=== PATIENT | male | born 1950 | race Caucasian/White ===

== ENCOUNTER 2016-06-29 10:02 | Emergency (ER) | payer MEDICARE ==
[2016-06-29] MEDS ORDERED: SODIUM CHLORIDE 0.9% 1,000 ML IV STA (10:13)
--- NOTE | 2016-06-29 10:16 | ED ---
Dizziness HPI - General Stated Complaint: Near Syncope Time Seen by Provider: 06/29/16 10:02 Source: patient, EMS, RN notes reviewed Mode of arrival: EMS - History of Present Illness Initial Comments: This is a 66-year-old male who was just diagnosed with an upper respiratory infection yesterday and started on cefuroxime who states that after eating breakfast today took one of his medications a felt very lightheaded and dizzy about 20 minutes later. He denies any chest pain shortness breath no fevers chills or sweats. He was brought in by EMS for evaluation. He had a blood pressure 1:30/84 and a glucose 194. He has a history of hypertension and high cholesterol type 2 diabetes. MD Complaint: dizziness, lightheadedness - Related Data Home Medications Medication Instructions Recorded Confirmed Ezetimibe [Zetia] 10 mg PO DAILY 11/09/13 06/29/16 Simvastatin [Zocor] 20 mg PO HS 11/09/13 06/29/16 Bisoprolol Fumarate 10 mg PO DAILY 06/29/16 06/29/16 Cefuroxime Axetil [Ceftin] 500 mg PO BID 06/29/16 06/29/16 Ibuprofen [Motrin] 600 mg PO Q6HR PRN 06/29/16 06/29/16 sitaGLIPtin PHOS/metFORMIN HCL 1 tab PO BID 06/29/16 06/29/16 [Janumet 50-500 mg Tablet] Previous Rx's Medication Instructions Recorded Levofloxacin [Levaquin] 500 mg PO DAILY #10 tab 06/29/16 Allergies Allergy/AdvReac Type Severity Reaction Status Date / Time azithromycin Allergy Unknown Verified 06/29/16 10:38 [From Zithromax Z-Benito] Review of Systems ROS Statement: Those systems with pertinent positive or pertinent negative responses have been documented in the HPI. ROS Other: All systems not noted in ROS Statement are negative. Past Medical History Past Medical History: Hyperlipidemia, Hypertension, Pneumonia History of Any Multi-Drug Resistant Organisms: None Reported Past Surgical History: No Surgical Hx Reported Past Psychological History: No Psychological Hx Reported Smoking Status: Never smoker Past Alcohol Use History: None Reported Past Drug Use History: None Reported General Exam General appearance: alert, in no apparent distress Head exam: Present: atraumatic, normocephalic, normal inspection Eye exam: Present: normal appearance, PERRL, EOMI. Absent: scleral icterus, conjunctival injection, periorbital swelling ENT exam: Present: mucous membranes dry Neck exam: Present: normal inspection. Absent: tenderness, meningismus, lymphadenopathy Respiratory exam: Present: normal lung sounds bilaterally. Absent: respiratory distress, wheezes, rales, rhonchi, stridor Cardiovascular Exam: Present: regular rate, normal rhythm, normal heart sounds. Absent: systolic murmur, diastolic murmur, rubs, gallop, clicks GI/Abdominal exam: Present: soft, normal bowel sounds. Absent: distended, tenderness, guarding, rebound, rigid Extremities exam: Present: normal inspection, full ROM, normal capillary refill. Absent: tenderness, pedal edema, joint swelling, calf tenderness Back exam: Present: normal inspection Neurological exam: Present: alert, oriented X3, CN II-XII intact Psychiatric exam: Present: normal affect, normal mood Skin exam: Present: warm, dry, intact, normal color. Absent: rash Course Vital Signs 06/29/16 06/29/16 06/29/16 10:18 12:06 12:07 Temperature 98.1 F Pulse Rate 73 Pulse Rate [ 74 72 Integrated Logistics Support Manager ] Respiratory 16 Rate Blood Pressure 154/78 Blood Pressure 153/67 164/77 [Right Arm] O2 Sat by Pulse 98 Oximetry 06/29/16 12:19 Temperature Pulse Rate 77 Pulse Rate [ Integrated Logistics Support Manager ] Respiratory 20 Rate Blood Pressure 164/77 Blood Pressure [Right Arm] O2 Sat by Pulse 96 Oximetry EKG Findings - EKG Results: EKG: interpreted by ERMLane, WNL, sinus rhythm, normal axis, normal QRS, normal ST/ T, no acute changes (Sinus rhythm with a rate 75 appear of 01 92 QRS duration 86 QT/QTC of 374/417 this is a normal-appearing EKG some artifact is noted especially V1) Medical Decision Making - Medical Decision Making I did discuss the findings with the patient and with Dr. Perkins. Patient will be discharged she will be switched from his current antibiotic to Levaquin. He is a follow-up with his doctor and return when necessary he currently is asymptomatic. - Lab Data Result diagrams: 06/29/16 10:46 06/29/16 10:46 Lab Results 06/29/16 06/29/16 06/29/16 Range/Units 10:46 10:46 10:46 WBC 6.6 (3.8-10.6) k/uL RBC 5.13 (4.30-5.90) m/uL Hgb 15.4 (13.0-17.5) gm/dL Hct 45.4 (39.0-53.0) % MCV 88.5 (80.0-100.0) fL MCH 30.0 (25.0-35.0) pg MCHC 33.9 (31.0-37.0) g/dL RDW 12.0 (11.5-15.5) % Plt Count 192 (150-450) k/uL Neutrophils % 66 % Lymphocytes % 24 % Monocytes % 5 % Eosinophils % 3 % Basophils % 1 % Neutrophils # 4.3 (1.3-7.7) k/uL Lymphocytes # 1.6 (1.0-4.8) k/uL Monocytes # 0.4 (0-1.0) k/uL Eosinophils # 0.2 (0-0.7) k/uL Basophils # 0.0 (0-0.2) k/uL Sodium 138 (137-145) mmol/L Potassium 4.3 (3.5-5.1) mmol/L Chloride 105 (98-107) mmol/L Carbon Dioxide 25 (22-30) mmol/L Anion Gap 8 mmol/L BUN 16 (9-20) mg/dL Creatinine 0.88 (0.66-1.25) mg/dL Est GFR (MDRD) Af Amer >60 (>60 ml/min/1.73 sqM) Est GFR (MDRD) Non-Af >60 (>60 ml/min/1.73 sqM) Glucose 147 H (74-99) mg/dL Calcium 8.8 (8.4-10.2) mg/dL Magnesium 1.8 (1.6-2.3) mg/dL Total Bilirubin 0.5 (0.2-1.3) mg/dL AST 18 (17-59) U/L ALT 52 (21-72) U/L Alkaline Phosphatase 74 (38-126) U/L Total Creatine Kinase 41 L (55-170) U/L CK-MB (CK-2) 0.5 (0.0-2.4) ng/mL CK-MB (CK-2) Rel Index 1.2 Troponin I <0.012 (0.000-0.034) ng/mL Total Protein 6.4 (6.3-8.2) g/dL Albumin 3.6 (3.5-5.0) g/dL - Radiology Data Radiology results: report reviewed (I did review the imaging and report no acute findings.), image reviewed Disposition Clinical Impression: Benign paroxysmal positional vertigo, Medication reaction Disposition: HOME SELF-CARE Condition: Good Instructions: Dizziness (ED) Additional Instructions: Stop her current antibiotic and start Levaquin as directed Prescriptions: Levofloxacin [Levaquin] 500 mg PO DAILY #10 tab
[2016-06-29 10:58] LABS: Basophils % (A) 1 %; CH 30.7; CHCM 34.7; Eosinophils # (A) 0.2 k/uL (0-0.7); Eosinophils % (A) 3 %; HCT 45.4 % (39.0-53.0); HGB 15.4 gm/dL (13.0-17.5); Luc # (Auto) 0.12; Luc % (Auto) 2; Lymphocytes # (A) 1.6 k/uL (1.0-4.8); Lymphocytes % (A) 24 %; MCHC 33.9 g/dL (31.0-37.0); MCV 88.5 fL (80.0-100.0); Mean Platelet Volume 8.3; Monocytes # (A) 0.4 k/uL (0-1.0); Monocytes % (A) 5 %; Neutrophils # (A) 4.3 k/uL (1.3-7.7); Neutrophils % (A) 66 %; RBC 5.13 m/uL (4.30-5.90); WBC 6.6 k/uL (3.8-10.6); WBC (Perox) 6.45
[2016-06-29 11:09] LABS: ALT 52 U/L (21-72); AST 18 U/L (17-59); Alkaline Phosphatase 74 U/L (38-126); Anion Gap 8 mmol/L; Blood Urea Nitrogen 16 mg/dL (9-20); Calcium 8.8 mg/dL (8.4-10.2); Carbon Dioxide 25 mmol/L (22-30); Chloride 105 mmol/L (98-107); Glucose 147 mg/dL (74-99); Magnesium 1.8 mg/dL (1.6-2.3); Non-African American GFR(MDRD) >60 (>60 ml/min/1.73 sqM); Potassium 4.3 mmol/L (3.5-5.1); Sodium 138 mmol/L (137-145); Total Bilirubin 0.5 mg/dL (0.2-1.3); Total Protein 6.4 g/dL (6.3-8.2)
--- NOTE | 2016-06-29 11:22 | XR ---
EXAMINATION TYPE: XR chest 2V DATE OF EXAM: 06/29/2016 11:03 AM COMPARISON: 11/09/2013 HISTORY: 66-year-old male trauma, dizziness, head cold TECHNIQUE: PA and lateral views FINDINGS: The cardiomediastinal silhouette, aorta, and pulmonary vasculature are within normal limits. Lungs an d pleural spaces are clear. IMPRESSION: No acute cardiopulmonary process.
[2016-06-29 11:27] LABS: Creatine Kinase 41 U/L (55-170)
[2016-06-29 11:40] LABS: Creatine Kinase MB 0.5 ng/mL (0.0-2.4); Troponin I <0.012 ng/mL (0.000-0.034)
[2016-06-29 13:55] VITALS: BP 151/90; PULSE 71; RESP 16; TEMP 98.3
== END 2016-06-29 14:05 | disposition home or self-care (01) ==
LOC: EC 10:02
DX: H81.10 Benign paroxysmal vertigo, unspecified ear (principal); T50.905A Adverse effect of unspecified drugs, medicaments and biological substances, initial encounter; I10 Essential (primary) hypertension; E78.00 Pure hypercholesterolemia, unspecified; E11.9 Type 2 diabetes mellitus without complications; Z79.899 Other long term (current) drug therapy; Z79.84 Long term (current) use of oral hypoglycemic drugs; Z88.1 Allergy status to other antibiotic agents; Z87.01 Personal history of pneumonia (recurrent)
CPT/HCPCS: 36415; 71020; 80053; 82550; 82553; 83735; 84484; 85025; 93005; 96360; 96361; 96374; 99284; 99285

== ENCOUNTER → 2017-04-19 | Outpatient (CLI) | payer MEDICARE ==
--- NOTE | 2017-04-19 17:00 | US ---
EXAMINATION TYPE: US carotid duplex BILAT DATE OF EXAM: 04/19/2017 COMPARISON: NONE CLINICAL HISTORY: R42 Vertigo. Dizziness EXAM MEASUREMENTS: RIGHT: Peak Systolic Velocity (PSV) cm/sec ----- Right CCA: 83.2 ----- Right ICA: 199.2 ----- Right ECA: 154.3 ICA/CCA ratio: 2.4 RIGHT: End Diastole cm/sec ----- Right CCA: 26.0 ----- Right ICA: 72.0 ----- Right ECA: 18.4 LEFT: Peak Systolic Velocity (PSV) cm/sec ----- Left CCA: 123.4 ----- Left ICA: 123.4 ----- Left ECA: 138.6 ICA/CCA ratio: 1.0 LEFT: End Diastole cm/sec ----- Left CCA: 32.3 ----- Left ICA: 37.0 ----- Left ECA: 15.7 VERTEBRALS (direction of flow): Right Vertebral: Antegrade Left Vertebral: Antegrade Rhythm: Normal Bilateral intimal thickening, plaque: bilateral bulb and proximal ICA, elevated velocities: right pro ximal ICA, right mid ECA and left mid ECA. Atheromatous changes noted in the carotid bulb on the right and left with shadowing compatible with c alcification. IMPRESSION: Hemodynamic significant stenosis of the proximal internal carotid artery on the right co rresponds to approximately 50% diameter reduction by Doppler criteria, an indirect measurement of car otid stenosis Criteria for Assigning % of Stenosis / Diameter reduction (Estimation based on the indirect measurements of the internal carotid artery velocities (ICA PSV). 1. Normal (no stenosis)=ICA PSV < 125 cm/s: ratio < 2.0: ICA EDV<40 cm/s. 2. Less than 50% stenosis=ICA PSV < 125 cm/s: ratio < 2.0: ICA EDV<40 cm/s. 3. 50 to 69% stenosis=ICA PSV of 125 to 230 cm/s: ration 2.0 ? 4.0: ICA EDV 40-100 cm/s. 4. Greater than 70% stenosis to near occlusion= ICA PSV > 230 cm/s: ratio > 4.0: ICA EDV > 100 cm/s. 5. Near occlusion= ICA PSV velocities may be low or undetectable: variable ratio and ICA EDV. 6. Total occlusion=unable to detect flow.
--- NOTE | 2017-04-20 11:06 | ECHOF ---
Referral Reason:R42 VERTIGO MEASUREMENTS -------- HEIGHT: 175.3 cm WEIGHT: 83.9 kg BP: 148/65 IVSd: 1.2 cm (0.6 - 1.1) LVIDd: 4.2 cm (3.9 - 5.3) LVPWd: 1.2 cm (0.6 - 1.1) IVSs: 1.6 cm LVIDs: 2.8 cm LVPWs: 1.5 cm Ao Diam: 3.3 cm (2.0 - 3.7) AV Cusp: 1.2 cm (1.5 - 2.6) LA Diam: 3.1 cm (2.7 - 3.8) MV EXCURSION: 22.451 mm (> 18.000) MV EF SLOPE: 64 mm/s (70 - 150) EPSS: 0.2 cm MV E Krish: 0.82 m/s MV DecT: 189 ms MV A Krish: 1.07 m/s MV E/A Ratio: 0.76 AR PHT: 353 ms RAP: 5.00 mmHg RVSP: 14.34 mmHg FINDINGS -------- Sinus rhythm. This was a technically good study. The left ventricular size is normal. There is mild concentric left ventricular hypertrophy. Overa ll left ventricular systolic function is normal with, an EF between 55 - 60 %. The right ventricle is normal in size and function. The left atrium is normal in size. The right atrium is normal in size. Aortic valve is trileaflet and is mildly thickened. Trace amount of aortic regurgitation. The mitral valve leaflets are mildly thickened. There is trace mitral regurgitation. Trace tricuspid regurgitation present. The right ventricular systolic pressure, as measured by Dopp ler, is 14.34mmHg. Pulmonic valve appears structurally normal. The aortic root size is normal. The pericardium is normal. CONCLUSIONS -------- 1. Sinus rhythm. 2. This was a technically good study. 3. The left ventricular size is normal. 4. There is mild concentric left ventricular hypertrophy. 5. Overall left ventricular systolic function is normal with, an EF between 55 - 60 %. 6. The right ventricle is normal in size and function. 7. The left atrium is normal in size. 8. The right atrium is normal in size. 9. Aortic valve is trileaflet and is mildly thickened. 10. Trace amount of aortic regurgitation. 11. The mitral valve leaflets are mildly thickened. 12. There is trace mitral regurgitation. 13. Trace tricuspid regurgitation present. 14. The right ventricular systolic pressure, as measured by Doppler, is 14.34mmHg. 15. Pulmonic valve appears structurally normal. 16. The aortic root size is normal. 17. The pericardium is normal. MEAT SMOKER: Shi Mendiola RDCS
== END | disposition home or self-care (01) ==
LOC: RADECHMAIN 14:51
PROVIDERS: ATTEND Family Medicine
DX: I65.23 Occlusion and stenosis of bilateral carotid arteries (principal); I08.3 Combined rheumatic disorders of mitral, aortic and tricuspid valves
CPT/HCPCS: 93306; 93880

== ENCOUNTER → 2019-11-23 | Outpatient (CLI) | payer MEDICARE ==
[2019-11-23 11:36] LABS: African American GFR (CKD) >90 (>60 ml/min/1.73 sqM); Anion Gap 6 mmol/L; Blood Urea Nitrogen 18 mg/dL (9-20); Carbon Dioxide 29 mmol/L (22-30); Chloride 105 mmol/L (98-107); Non-African American GFR(CKD) >90 (>60 ml/min/1.73 sqM); Potassium 4.6 mmol/L (3.5-5.1); Sodium 140 mmol/L (137-145)
[2019-11-23 12:01] LABS: HCT 44.7 % (39.0-53.0); HGB 14.5 gm/dL (13.0-17.5); MCH 29.7 pg (25.0-35.0); MCHC 32.4 g/dL (31.0-37.0); MCV 91.7 fL (80.0-100.0); Mean Platelet Volume 7.9; Platelet Count 206 k/uL (150-450); RBC 4.88 m/uL (4.30-5.90); RDW 12.2 % (11.5-15.5); WBC 5.5 k/uL (3.8-10.6)
== END | disposition home or self-care (01) ==
LOC: LABPAT 10:21
PROVIDERS: ATTEND Internal Medicine Interventional Cardiology
DX: Z01.818 Encounter for other preprocedural examination (principal); I34.0 Nonrheumatic mitral (valve) insufficiency
CPT/HCPCS: 36415; 80051; 82565; 84520; 85027

== ENCOUNTER 2019-11-29 06:19 | Day surgery (SDC) | payer MEDICARE ==
[2019-11-27 13:38] VITALS: BMI 27.3
[~2019-11-29 06:19] MED LIST: ALPRAZolam 0.25 MG TAB PO PRN; ALPRAZolam 0.5 MG TAB PO PRN; NITROGLYCERIN SL TABS 0.4 MG TAB SUBLINGUAL PRN; SODIUM CHLORIDE 0.9% 1,000 ML in EMPTY BAG 1 BAG IV ONE
[2019-11-29] MEDS ORDERED: ATORVASTATIN 80 MG TAB PO ONE (07:00)
[2019-11-29] MEDS ORDERED: ASPIRIN 325 MG TAB PO ONE (07:00)
[2019-11-29 07:15] LABS: Glucose,Whole Blood 140 mg/dL (75-99)
[2019-11-29 07:17] VITALS: TEMP 98
[2019-11-29] MEDS ORDERED: SODIUM CHLORIDE 0.9% 1,000 ML IV ONE (07:18)
[2019-11-29] MEDS ORDERED: fentaNYL (PF) 50 MCG/ML 2 ML AMP ONE (07:18)
[2019-11-29] MEDS ORDERED: IV FLUID CONTINUATION 950 ML IV ONE (07:24)
[2019-11-29] MEDS ORDERED: BENZOCAINE SPRAY 1 CAN TOPICAL ONE ×2 (07:32→07:39)
[2019-11-29] MEDS ORDERED: MIDAZOLAM 2 MG/2 ML VIAL IV ONE (07:39)
[2019-11-29] MEDS ORDERED: fentaNYL (PF) 50 MCG/ML 2 ML AMP IV ONE ×2 (07:41→08:30)
[2019-11-29] MEDS: MIDAZOLAM 2 MG/2 ML VIAL IV ONE ×2 (07:44→07:50)
[2019-11-29] MEDS ORDERED: LIDOCAINE 1% INJ 10MG/ML (20 ML MDV) SQ ONE (08:25)
[2019-11-29] MEDS ORDERED: IOPAMIDOL-370 100ML BTL INJ ONE ×2 (08:49)
[2019-11-29] MEDS ORDERED: RX INFO: IV CONTRAST WAS GIVEN 1 EACH MISC MISCELLANE PRN (08:55)
[2019-11-29] MEDS ORDERED: SODIUM CHLORIDE 0.9% 1,000 ML IV SCH (09:00)
--- NOTE | 2019-11-29 09:01 | P.PCN ---
Date of Procedure: 11/29/19 Operative Findings: TRANSESOPHAGEAL ECHOCARDIOGRAM GERIATRIC NURSING ASSISTANT: JAMAL ABARCA MD, RPVI INDICATION: This is a 69-year-old gentleman with diabetes, hypertension, and dyslipidemia who was experiencing increasing shortness of breath with exertion. The echocardiogram revealed evidence of mitral regurgitation. The mitral regurgitation was moderate. For further clarification and for definitive diagnosis, the patient was scheduled to undergo a YVROSE and heart catheterization SEDATION: Conscious sedation COMPLICATION: None PROCEDURE DESCRIPTION: After obtaining an informed consent, the patient was brought to transesophageal echocardiogram room. Pulse oximetry and heart monitors were attached to the patient. The patient throat was sprayed using lidocaine. The patient was turned into left lateral position. After that a bite guard was placed. After an appropriate conscious sedation was initiated, the transesophageal echocardiogram was advanced through a bite guard into the mid esophagus. A 2-D echocardiogram images, color Doppler images, continuous wave images, pulse-wave images, of various cardiac structure were performed. After that the transesophageal echocardiogram probe was advanced into the stomach and fixed to obtain transgastric view was. The probe was brought into the mid esophagus. Inter-atrial septum was interrogated using 2D images, color Doppler images, and then contrast study. After that transesophageal echocardiogram was withdrawn out and upon withdrawing the descending thoracic aorta all the way up to the arch was evaluated. FINDING: The left ventricular dimension and systolic function appeared to be within normal limits. The ejection fraction appeared to be in the range of 60%. The right ventricle appeared to be of normal size and function. The left atrium and right atrium are mildly dilated. The interatrial septum appeared to be intact. The left atrial appendage appeared to be intact. Aortic valve is trileaflet valve without stenosis with mild insufficiency. The mitral valve is mildly thickened with evidence of moderate mitral regurgitation only. There was moderate tricuspid regurgitation seen and mild pulmonic insufficiency. There was mild atherosclerotic plaque was seen in the aorta. CONCLUSION: 1. Normal left ventricular dimension and systolic function 2. Normal right ventricular dimension and systolic function 3. Mild biatrial enlargement 4. Intact interatrial septum without shunt 5. Normal left atrial appendage 6. Trileaflet aortic valve without stenosis with mild insufficiency 7. The Mitral valve leaflets with evidence of moderate mitral regurgitation 8. Moderate tricuspid regurgitation 9. No evidence of pericardial effusion 10.Mildly orthostatic plaque was seen in the aorta
--- NOTE | 2019-11-29 09:07 | P.PCN ---
Date of Procedure: 11/29/19 Operative Findings: CARDIAC CATHETERIZATION PERFORMING PHYSICIAN: Angel Kraft MD, RPVI PROCEDURE PERFORMED: 1. Right heart catheterization 2 Left heart catheterization 3. Selective right and left coronary injury INDICATION: This is a 69-year-old gentleman with diabetes, hypertension, and dyslipidemia was experiencing increasing in the shortness of breath with exertion. He underwent an echocardiogram which revealed moderate mitral regurgitation. For definitive diagnosis, the patient was brought today to undergo a YVROSE and heart catheterization. COMPLICATION: None APPROACH: Right common femoral artery LEVEL OF SEDATION: Moderate with sedation length of 26 minutes PROCEDURE DESCRIPTION: After obtaining an informed consent, the patient was brought to cardiac laborer golf course. Local anesthesia was performed using lidocaine subcutaneously. The right common femoral vein was cannulated using micropuncture technique, the micropuncture wire passed easily then I placed an 8-Norwegian sheath in the right common femoral vein. The right common femoral artery was cannulated using Seldinger technique, the guidewire passed easily, following that we advanced a 6 Norwegian sheath dilator assembly, the wire and dilator were removed and sheath was flushed. I did after that right heart catheterization using 6-Norwegian [place] catheter. Selective right and left coronary angiogram using a 6-Norwegian JR4 and JL catheters. Following that we did left heart catheterization using 6-Norwegian pigtail catheter. The procedure was completed there was no complication. SELECTIVE CORONARY ANGIOGRAM: The right coronary artery: Is a large caliber vessel and a dominant vessel. The RCA is angiographically normal. Bifurcates distally into PDA and PLV branches both appeared to be angiographically normal Left main: Is angiographically normal. Bifurcates into LCx, ramus intermedius, and left anterior descending artery The left circumflex: Is a moderate caliber vessel and nondominant vessel. Its angiographically normal. Gives rise to 3 small obtuse marginal branches and appears to be angiographically normal The left anterior descending artery: Is a large caliber vessel. The LAD is angiographically normal. Gives rises in the very proximal portion into a diagonal branch which seems to be normal. HEMODYNAMICS: Pulmonary capillary wedge pressure was 18 mmHg PA pressures were as follow systolic of 28, diastolic of 15, and mean of 19 mmHg RV pressures were as follow systolic of 27 and end-diastolic of 10 mmHg RA pressure was 8 mmHg The LVEDP was 18 mmHg CONCLUSION: Elevated left ventricular end-diastolic pressure Elevated pulmonary capillary wedge pressure Normal coronary angiogram No aortic stenosis POSTPROCEDURE MANAGEMENT: Medical treatment Follow-up with the patient
[2019-11-29 15:27] VITALS: RESP 16
[2019-11-29] MEDS ORDERED: ACETAMINOPHEN TAB 325 MG TAB ONE (16:06)
[2019-11-29 16:21] VITALS: BP 155/69; PULSE 80
== END 2019-11-29 17:00 | disposition home or self-care (01) ==
LOC: CATHCVL 06:19
PROVIDERS: ATTEND Internal Medicine Interventional Cardiology
DX: I08.3 Combined rheumatic disorders of mitral, aortic and tricuspid valves (principal); I10 Essential (primary) hypertension; E11.9 Type 2 diabetes mellitus without complications; E78.5 Hyperlipidemia, unspecified; Z82.49 Family history of ischemic heart disease and other diseases of the circulatory system; Z79.84 Long term (current) use of oral hypoglycemic drugs; Z79.899 Other long term (current) drug therapy; Z88.1 Allergy status to other antibiotic agents; Z91.09 Other allergy status, other than to drugs and biological substances; Z91.048 Other nonmedicinal substance allergy status
CPT/HCPCS: 93312; 93320; 93325; 93460; C1769 ×5; C1894 ×2; J2250; J2001; J3010; Q9967

== ENCOUNTER → 2020-07-24 | Outpatient (CLI) | payer MEDICARE ==
[2020-07-24 15:54] LABS: PSA Annual Screen 1.6 ng/mL (0.0-4.0)
== END | disposition home or self-care (01) ==
LOC: LABWHC1 08:06
PROVIDERS: ATTEND Family Medicine
DX: Z12.5 Encounter for screening for malignant neoplasm of prostate (principal); E55.9 Vitamin D deficiency, unspecified
CPT/HCPCS: 82306; 36415; G0103

== ENCOUNTER → 2021-01-16 | Outpatient (CLI) | payer MEDICARE ==
[2021-01-16 13:10] LABS: African American GFR (CKD) >90 (>60 ml/min/1.73 sqM); Blood Urea Nitrogen 16 mg/dL (9-20); Non-African American GFR(CKD) 87 (>60 ml/min/1.73 sqM)
--- NOTE | 2021-01-16 21:09 | CT ---
EXAMINATION TYPE: CT angio neck DATE OF EXAM: 01/16/2021 HISTORY: Carotid Stenosis COMPARISON: None CT DLP: 364 mGycm. Automated Exposure Control for Dose Reduction was Utilized. TECHNIQUE: CTA scan of the neck is performed without and with IV Contrast, patient injected with 65 ml mL of Isovue 370, axial images are obtained, coronal and sagittal reformatted images are reviewed. Three-D reconstructed images are created on an independent workstation and reviewed. FINDINGS: Carotid/Vascular Structures: Three-vessel aortic arch. Minimal atherosclerotic disease at the origin of the arch vessels without significant stenosis. Minimal atherosclerotic plaque of the common carotid arteries. Atherosclerotic disease of the carotid bifurcations with greater than 90% stenosis of the proximal right ICA and approximately 50% stenosis of the proximal left ICA. The more distal ICAs are patent. Punctate calcification is seen at the origin of the left vertebral artery. The extracranial and intra cranial vertebral arteries are otherwise patent. Next Other: Degenerative changes of the spine. IMPRESSION: Atherosclerotic disease of the carotid bifurcations with greater than 90% stenosis of th e proximal right ICA and approximately 50% stenosis of the proximal left ICA. NASCET criteria was used in interpretation of this exam?
== END | disposition home or self-care (01) ==
LOC: RADCTMAIN 12:25
PROVIDERS: ATTEND Internal Medicine Interventional Cardiology
DX: I65.23 Occlusion and stenosis of bilateral carotid arteries (principal)
CPT/HCPCS: 82565; 84520; 70498; Q9967

== ENCOUNTER 2021-02-18 06:47 | Inpatient (IN) | payer MEDICARE ==
[2021-02-12 08:54] VITALS: BMI 28.0
[~2021-02-18 06:47] MED LIST changes: +ASPIRIN 325 MG TAB PO PRN; -SODIUM CHLORIDE 0.9% 1,000 ML in EMPTY BAG 1 BAG IV ONE
[2021-02-18] MEDS: SODIUM CHLORIDE 0.9% 1,000 ML in EMPTY BAG 1 BAG IV ONE ×2 (07:22→11:57)
[2021-02-18 07:25] LABS: Glucose,Whole Blood 183 mg/dL (75-99)
[2021-02-18 07:25] LABS: Basophils % (A) 0 %; Eosinophils # (A) 0.1 k/uL (0-0.7); Eosinophils % (A) 1 %; HCT 45.3 % (39.0-53.0); HGB 15.6 gm/dL (13.0-17.5); Lymphocytes # (A) 1.6 k/uL (1.0-4.8); Lymphocytes % (A) 10 %; MCH 31.3 pg (25.0-35.0); MCHC 34.5 g/dL (31.0-37.0); MCV 90.8 fL (80.0-100.0); Mean Platelet Volume 8.5; Monocytes # (A) 0.9 k/uL (0-1.0); Monocytes % (A) 6 %; Neutrophils # (A) 13.2 k/uL (1.3-7.7); Neutrophils % (A) 83 %; Platelet Count 230 k/uL (150-450); RBC 4.99 m/uL (4.30-5.90); RDW 11.7 % (11.5-15.5); WBC 15.9 k/uL (3.8-10.6)
[2021-02-18 08:16] LABS: African American GFR (CKD) >90 (>60 ml/min/1.73 sqM); Anion Gap 8 mmol/L; Blood Urea Nitrogen 18 mg/dL (9-20); Calcium 9.4 mg/dL (8.4-10.2); Carbon Dioxide 26 mmol/L (22-30); Chloride 104 mmol/L (98-107); Glucose 197 mg/dL (74-99); Non-African American GFR(CKD) >90 (>60 ml/min/1.73 sqM); Potassium 4.7 mmol/L (3.5-5.1); Sodium 138 mmol/L (137-145)
[2021-02-18] MEDS ORDERED: LIDOCAINE 1% INJ 10MG/ML (20 ML MDV) ONE (08:16)
[2021-02-18] MEDS ORDERED: HEPARIN SODIUM 1,000 UN/ML (10ML VL) ONE ×2 (08:23→09:22)
[2021-02-18] MEDS ORDERED: LIDOCAINE 1% INJ 10MG/ML (20 ML MDV) SQ ONE (08:47)
[2021-02-18] MEDS ORDERED: HEPARIN SODIUM 1,000 UN/ML (10ML VL) IV ONE ×2 (08:54→09:29)
[2021-02-18] MEDS ORDERED: RX INFO: IV CONTRAST WAS GIVEN 1 EACH MISC MISCELLANE PRN (09:00)
[2021-02-18] MEDS ORDERED: ATROPINE SULFATE 0.1 MG/ML 10ML SYRINGE IV ONE (09:38)
[2021-02-18] MEDS ORDERED: NOREPINEPHRINE 4 MG in SODIUM CHLORIDE 0.9% 250 ML IV ONE (09:41)
[2021-02-18] MEDS ORDERED: CLOPIDOGREL 75 MG TAB ONE (09:46)
[2021-02-18] MEDS ORDERED: IOPAMIDOL-250 100ML BTL INTRAARTER ONE ×2 (10:02)
[2021-02-18] MEDS ORDERED: MAG HYDROX/AL HYDROX/SIMETH 30 ML CUP PO PRN (10:02)
[2021-02-18] MEDS ORDERED: ATROPINE SULFATE 0.1 MG/ML 10ML SYRINGE IV PRN (10:02)
[2021-02-18] MEDS ORDERED: CLOPIDOGREL 75 MG TAB PO ONE (10:03)
[2021-02-18 10:26] LABS: Glucose,Whole Blood 218 mg/dL (75-99)
--- NOTE | 2021-02-18 10:29 | LTR ---
February 18, 2021 To: Dr. Mariana Bradley Re: Pj Jimenez (48) Dear Dr. Bradley, Mr. Jimenez underwent today successful stenting of the right internal carotid artery with an excellent angiographic result and without any complication. I want to thank you for allowing me to participate in this patient's care. Please do not hesitate to call with any questions or concerns. Sincerely, Angel Kraft M.D. TRIPP / JERICHO: [id number] /
--- NOTE | 2021-02-18 10:40 | PCN ---
PROCEDURE NOTE DATE OF SERVICE: 02/18/2021 PERFORMING PHYSICIAN: Angel Kraft MD PROCEDURE PERFORMED: 1. Successful stenting of the right internal carotid artery using Xact carotid stent that was 9-7 by 13 mm with adjunctive use of Emboshield Rohith embolic protection system. 2. Selective angiogram of the right common and right internal carotid arteries. 3. Intracranial angiogram. 4. Selective angiogram of the right common femoral artery. 5. Ultrasound-guided access of the right common femoral artery. INDICATION: This is a 70-year-old gentleman who was diagnosed recently with critical disease involving the right internal carotid artery documented per CTA. He was experiencing symptoms of blurry vision, but he was not diagnosed with a stroke. He does have diabetes and hypertension and dyslipidemia. APPROACH: Right common femoral artery. COMPLICATIONS: None. LEVEL OF SEDATION: The procedure was performed without any conscious sedation. The procedure length was 64 minutes. PROCEDURE DESCRIPTION: After obtaining informed consent, the patient was brought to the cardiac manager labor relations. The right common femoral artery was cannulated using micropuncture technique under ultrasound guidance. The micropuncture wire passed easily. Then I placed 90 cm 6-Uruguayan sheath at the right common femoral artery and the sheath was advanced over the wire to the descending aorta. Subsequently I did an aortic arch angiogram using 5-Uruguayan pigtail catheter which was placed at the ascending aorta. Angiogram of the arch was performed using digital subtraction and using a power injection. The aortic arch angiogram revealed type 1 aortic arch. Subsequently I selected the innominate artery using a JB2 catheter. Then I did wire the right common carotid artery using an 0.035 stiff Glidewire. I did advance the long shuttle sheath over the 0.035 stiff Glidewire and the JB2 catheter all the way to the proximal right common carotid artery. At that point, anticoagulation was initiated using heparin with continuous ACT monitoring throughout the procedure. After that and after doing multiple angiograms of the right common and right internal carotid arteries, I was able to find the lesion at the right internal carotid artery by its ostium which was about 99.9%. Subsequently I did prep my equipment, which included starting with the retrieval device and subsequently the postdilatation balloon, which was 5.0 x 20, and then the stent system, which was Xact, and then the predilatation balloon, which was a 4 mm balloon, and then the Emboshield Rohith distal protection filter. I did wire the lesion at the right internal carotid artery and then I deployed the filter. All of that was performed under fluoroscopic guidance. Subsequently I did predilatation of the lesion using a 4 mm x 20 balloon which was inflated under 6 atmospheres very quickly up and down. Subsequently I deployed 9-7 by 30 mm Xact carotid stent, which was again positioned under fluoroscopic guidance and deployed under fluoroscopic guidance. Postdilatation was performed using a 6 x 20 mm balloon. Also the balloon was inflated up and down quickly. The procedure was completed without any complication. After that I did retrieve the filter. At the end of the procedure the patient's pressure dropped down to with low heart rate. He was given half of atropine and Levophed was started. With his pressure normalized, his symptom resolved, which was only generalized numbness. By the end of the procedure, the patient was asymptomatic. I did selective right common femoral artery angiogram before I deployed the Perclose device. The procedure was completed without any complication. POSTPROCEDURE MANAGEMENT: 1. Dual anti-platelet therapy. 2. Aggressive cholesterol control. 3. Risk factor modifications. 4. Follow up with the patient. MMODL / IJN: [id number] /
--- NOTE | 2021-02-18 11:51 | IR ---
EXAMINATION TYPE: IR stent intravas non coronary DATE OF EXAM: 02/18/2021 COMPARISON: NONE HISTORY: Fluoroscopy time. Fluoroscopy was provided to the referring clinician.
[2021-02-18] MEDS: NOREPINEPHRINE 4 MG in SODIUM CHLORIDE 0.9% 250 ML IV SCH ×3 (11:56→21:45)
[2021-02-18] MEDS: SODIUM CHLORIDE 0.9% 1,000 ML IV SCH ×2 (11:58→20:36)
[2021-02-18] MEDS: ATORVASTATIN 40 MG TAB PO SCH (20:35)
[2021-02-18 20:45] LABS: Glucose,Whole Blood 335 mg/dL (75-99)
[2021-02-18] MEDS: INSULIN ASPART (NovoLOG) 100 UNIT/ML VIAL SQ SCH (21:04)
[2021-02-19] MEDS: NOREPINEPHRINE 4 MG in SODIUM CHLORIDE 0.9% 250 ML IV SCH ×3 (02:14→14:37)
[2021-02-19 04:35] LABS: Basophils % (A) 0 %; Eosinophils % (A) 0 %; HGB 13.2 gm/dL (13.0-17.5); Lymphocytes % (A) 18 %; MCH 31.6 pg (25.0-35.0); MCHC 33.7 g/dL (31.0-37.0); MCV 93.7 fL (80.0-100.0); Monocytes # (A) 1.5 k/uL (0-1.0); Monocytes % (A) 9 %; Neutrophils # (A) 12.2 k/uL (1.3-7.7); Neutrophils % (A) 72 %; Platelet Count 204 k/uL (150-450); RBC 4.16 m/uL (4.30-5.90); WBC 16.9 k/uL (3.8-10.6)
[2021-02-19 04:50] LABS: African American GFR (CKD) >90 (>60 ml/min/1.73 sqM); Anion Gap 7 mmol/L; Blood Urea Nitrogen 20 mg/dL (9-20); Calcium 8.4 mg/dL (8.4-10.2); Carbon Dioxide 23 mmol/L (22-30); Chloride 106 mmol/L (98-107); Glucose 313 mg/dL (74-99); Non-African American GFR(CKD) 82 (>60 ml/min/1.73 sqM); Potassium 4.1 mmol/L (3.5-5.1); Sodium 136 mmol/L (137-145)
[2021-02-19 06:47] LABS: Glucose,Whole Blood 259 mg/dL (75-99)
[2021-02-19] MEDS: INSULIN ASPART (NovoLOG) 100 UNIT/ML VIAL SQ SCH ×4 (06:48→20:11)
[2021-02-19] MEDS: EZETIMIBE 10 MG TAB PO SCH (08:33)
[2021-02-19] MEDS: ASPIRIN 325 MG TAB PO SCH (08:34)
[2021-02-19] MEDS: CLOPIDOGREL 75 MG TAB PO SCH (08:34)
[2021-02-19] MEDS: CHOLECALCIFEROL 25 MCG (1000 IU) TABLET PO SCH (08:34)
[2021-02-19] MEDS: LINAGLIPTIN 5 MG TABLET PO SCH (08:34)
[2021-02-19] MEDS ORDERED: NON FORMULARY DRUG (Simvastatin 20 MG Tab) PO SCH (09:00)
[2021-02-19] MEDS ORDERED: LOSARTAN 50 MG TAB PO SCH (09:00)
[2021-02-19 11:42] LABS: Glucose,Whole Blood 269 mg/dL (75-99)
[2021-02-19] MEDS: ACETAMINOPHEN TAB 325 MG TAB PO PRN ×2 (15:14→20:11)
[2021-02-19] MEDS: MIDODRINE 5 MG TAB PO SCH (17:52)
[2021-02-19 17:59] LABS: Glucose,Whole Blood 258 mg/dL (75-99)
[2021-02-19 20:04] LABS: Glucose,Whole Blood 173 mg/dL (75-99)
[2021-02-19] MEDS: ATORVASTATIN 40 MG TAB PO SCH (20:10)
[2021-02-19] MEDS: SODIUM CHLORIDE 0.9% 1,000 ML in EMPTY BAG 1 BAG IV ONE (21:17)
--- NOTE | 2021-02-19 21:53 | PN ---
PROGRESS NOTE BRIEF HISTORY: This is a 70-year-old gentleman who underwent yesterday successful stenting of critical disease involving the right internal carotid artery with an excellent angiographic result by the end and without any complication from right groin approach. The patient was seen this morning. The right groin is soft and nontender and without any bruises. The patient is asymptomatic. Unfortunately, he still requires a small dose of norepinephrine, which we are leaning slowly. Meanwhile, we are going to start the patient on midodrine at 5 mg p.o. b.i.d. to help us wean the norepinephrine off completely. He is otherwise on dual anti-platelet therapy along with high-intensity statin. He denies any symptoms of chest pain or chest discomfort and no dizziness or lightheadedness and no presyncope or syncope. The blood work from today revealed WBC 16.9, hemoglobin 13.2, and platelet count of 204,000. Sodium is 136, potassium 4.1, GFR is more than . At this point, I recommended continuing the current medical regimen, including dual anti-platelet therapy along with high-intensity statin. We will try to wean the norepinephrine very slowly and start the patient on midodrine. I recommended keeping the patient one more day in the hospital to be discharged tomorrow morning if he is off norepinephrine. TRIPP / JERICHO: [id number] /
[2021-02-20 07:39] LABS: Glucose,Whole Blood 134 mg/dL (75-99)
[2021-02-20] MEDS: INSULIN ASPART (NovoLOG) 100 UNIT/ML VIAL SQ SCH (07:44)
[2021-02-20] MEDS: MIDODRINE 5 MG TAB PO SCH (07:44)
[2021-02-20] MEDS: EZETIMIBE 10 MG TAB PO SCH (08:40)
[2021-02-20] MEDS: LINAGLIPTIN 5 MG TABLET PO SCH (08:40)
[2021-02-20] MEDS: CHOLECALCIFEROL 25 MCG (1000 IU) TABLET PO SCH (08:40)
[2021-02-20] MEDS: CLOPIDOGREL 75 MG TAB PO SCH (08:40)
[2021-02-20] MEDS: ASPIRIN 325 MG TAB PO SCH (08:40)
[2021-02-20 08:42] VITALS: TEMP 98.6
[2021-02-20] MEDS ORDERED: metFORMIN 500 MG TAB PO SCH (09:00)
[2021-02-20 09:19] VITALS: RESP 18
--- NOTE | 2021-02-20 11:19 | DS ---
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 That was confirmed by an angiogram on 02/18/2021. Because of that, the patient underwent successful stenting of the right internal carotid artery with an excellent angiographic result and without any complication. The patient was seen yesterday, and because he was slightly hypotensive requiring a small dose of norepinephrine, we decided to keep the patient overnight for the following day and at the same time he was started on midodrine. He was seen today. He is asymptomatic. He is hemodynamically stable now. I am going to discharge the patient on dual anti-platelet therapy along with high-intensity statin and holding his blood pressure medication, which is the losartan, until the patient is seen in the office. The patient will be seen in the office in about a week. TCL / RISSAN: [id number] /
[2021-02-20 12:03] VITALS: BP 124/56; PULSE 52
== END 2021-02-20 12:05 | disposition home or self-care (01) | DRG 36 ==
LOC: 2ORMAIN 06:47 → 2SICU 10:22
PROVIDERS: ADMIT Internal Medicine Interventional Cardiology; ATTEND Internal Medicine Interventional Cardiology
PROC: B31R1ZZ Fluoroscopy of Intracranial Arteries using Low Osmolar Contrast (ICD-10-PCS; 2021-02-18)
PROC: X2AH336 Cerebral Embolic Filtration, Extracorporeal Flow Reversal Circuit from Right Common Carotid Artery, Percutaneous Approach, New Technology Group 6 (ICD-10-PCS; 2021-02-18)
PROC: 3E033XZ Introduction of Vasopressor into Peripheral Vein, Percutaneous Approach (ICD-10-PCS; 2021-02-18)
PROC: 037K3DZ Dilation of Right Internal Carotid Artery with Intraluminal Device, Percutaneous Approach (ICD-10-PCS; principal; 2021-02-18 08:30)
DX: I65.21 Occlusion and stenosis of right carotid artery (principal); E11.9 Type 2 diabetes mellitus without complications; E78.5 Hyperlipidemia, unspecified; I10 Essential (primary) hypertension; I95.9 Hypotension, unspecified; Z20.822 Contact with and (suspected) exposure to COVID-19
CPT/HCPCS: 37215; 80048; 85025; 87635

== ENCOUNTER → 2021-06-05 | Outpatient (CLI) | payer MEDICARE ==
[2021-06-05 15:23] LABS: Basophils # (A) 0.03 X 10*3/uL (0.00-0.10); Basophils % (A) 0.5 %; Eosinophils # (A) 0.18 X 10*3/uL (0.04-0.35); Eosinophils % (A) 3.1 %; HCT 48.2 % (39.6-50.0); HGB 15.2 g/dL (13.0-17.0); Lymphocytes # (A) 1.84 X 10*3/uL (0.90-5.00); Lymphocytes % (A) 31.6 %; MCH 28.2 pg (27.0-32.0); MCHC 31.5 g/dL (32.0-37.0); MCV 89.4 fL (80.0-97.0); Mean Platelet Volume 10.8 fL (9.5-12.2); Monocytes # (A) 0.59 X 10*3/uL (0.20-1.00); Monocytes % (A) 10.1 %; Neutrophils # (A) 3.19 X 10*3/uL (1.80-7.70); Neutrophils % (A) 54.7 %; Platelet Count 194 X 10*3/uL (140-440); RBC 5.39 X 10*6/uL (4.40-5.60); RDW 11.8 % (11.5-14.5); WBC 5.83 X 10*3/uL (4.50-10.00)
[2021-06-05 15:38] LABS: ALT 22 U/L (10-49); AST 16 U/L (14-35); Albumin 4.3 g/dL (3.8-4.9); Albumin/Globulin Ratio 1.96 (1.60-3.17); Alkaline Phosphatase 82 U/L (41-126); BUN/Creat Ratio 11.65 Ratio (12.00-20.00); Blood Urea Nitrogen 11.1 mg/dL (9.0-27.0); Calcium 9.5 mg/dL (8.7-10.3); Carbon Dioxide 26.8 mmol/L (20.0-27.5); Chloride 103 mmol/L (96-109); Chol/HDL Ratio 2.99 Ratio; Globulin 2.2 g/dL (1.6-3.3); Glucose 159 mg/dL (70-110); LDL Cholesterol,Calculated 78.9 mg/dL (0.0-131.0); Non-African American GFR(CKD) 79.4 (60.0-200.0); Potassium 4.2 mmol/L (3.5-5.5); Sodium 142 mmol/L (135-145); Total Protein 6.6 g/dL (6.2-8.2); VLDL Calculation 18.22 mg/dL (5.00-40.00)
== END | disposition home or self-care (01) ==
LOC: LABWHC1 08:23
PROVIDERS: ATTEND Family Medicine
DX: Z12.5 Encounter for screening for malignant neoplasm of prostate (principal); E11.9 Type 2 diabetes mellitus without complications
CPT/HCPCS: 80061; 80053; 85025; 36415; G0103

== ENCOUNTER → 2022-05-06 | Outpatient (CLI) | payer MEDICARE | END | disposition home or self-care (01) | LOC: LABWHC1 07:14 | PROVIDERS: ATTEND Family Medicine | DX: Z80.42 Family history of malignant neoplasm of prostate (principal) | CPT/HCPCS: 36415; 84153 ==

== ENCOUNTER → 2022-06-28 | Outpatient (CLI) | payer MEDICARE ==
[2022-06-28 10:42] LABS: Basophils # (A) 0.04 X 10*3/uL (0.00-0.10); Basophils % (A) 0.6 %; Eosinophils # (A) 0.15 X 10*3/uL (0.04-0.35); Eosinophils % (A) 2.4 %; HCT 45.5 % (39.6-50.0); HGB 15.1 g/dL (13.0-17.0); Immature Grans, Automated 0.2 %; Lymphocytes # (A) 2.03 X 10*3/uL (0.90-5.00); Lymphocytes % (A) 32.2 %; MCH 29.5 pg (27.0-32.0); MCHC 33.2 g/dL (32.0-37.0); Mean Platelet Volume 10.5 fL (9.5-12.2); Monocytes # (A) 0.51 X 10*3/uL (0.20-1.00); Monocytes % (A) 8.1 %; NRBC Per 100 WBC 0 /100 WBCS (0.0-0.0); Neutrophils # (A) 3.56 X 10*3/uL (1.80-7.70); Neutrophils % (A) 56.5 %; Platelet Count 201 X 10*3/uL (140-440); RBC 5.11 X 10*6/uL (4.40-5.60); RDW 11.7 % (11.5-14.5)
[2022-06-28 11:32] LABS: ALT 21 U/L (10-49); AST 15 U/L (14-35); African American GFR (CKD) 85.1 (60.0-200.0); Albumin 4.2 g/dL (3.8-4.9); Albumin/Globulin Ratio 1.96 (1.60-3.17); Alkaline Phosphatase 60 U/L (41-126); BUN/Creat Ratio 12.87 Ratio (12.00-20.00); Calcium 9.5 mg/dL (8.7-10.3); Carbon Dioxide 25.6 mmol/L (20.0-27.5); Chloride 104 mmol/L (96-109); Chol/HDL Ratio 3.57 Ratio; Globulin 2.2 g/dL (1.6-3.3); Glucose 159 mg/dL (70-110); LDL Cholesterol,Calculated 93.9 mg/dL (0.0-131.0); Non-African American GFR(CKD) 73.5 (60.0-200.0); Potassium 4.1 mmol/L (3.5-5.5); Sodium 140 mmol/L (135-145); Total Protein 6.4 g/dL (6.2-8.2)
[2022-06-28 12:25] LABS: Appearance,Urine Clear (Clear); Bilirubin,Urine Negative (Negative); Blood,Urine Negative (Negative); Color,Urine Yellow (Yellow); Ketones,Urine Negative (Negative); Nitrite,Urine Negative (Negative); Urobilinogen,Urine 0.2 (0.2,1.0)
== END | disposition home or self-care (01) ==
LOC: LABWHC1 06:59
PROVIDERS: ATTEND Family Medicine
DX: I10 Essential (primary) hypertension (principal); E78.5 Hyperlipidemia, unspecified
CPT/HCPCS: 36415; 80053; 80061; 81003; 82306; 84439; 84443; 85025

== ENCOUNTER → 2024-06-15 | Outpatient (CLI) | payer MEDICARE ==
[2024-06-15 15:28] LABS: ALT 26 U/L (10-49); AST 17 U/L (14-35); Chol/HDL Ratio 3.45 Ratio; LDL Cholesterol,Calculated 76.7 mg/dL (0.0-131.0)
== END | disposition home or self-care (01) ==
LOC: LABWHC1 07:37
PROVIDERS: ATTEND Internal Medicine Interventional Cardiology
DX: E78.2 Mixed hyperlipidemia (principal)
CPT/HCPCS: 36415; 80061; 84450; 84460